=== PATIENT | male | born 2000 | race Caucasian/White ===

== ENCOUNTER 2022-07-19 02:06 | Emergency (ER) | payer OTHER ==
[2022-07-19 02:24] VITALS: O2SAT 100
[2022-07-19] MEDS ORDERED: Sodium Chloride 0.9% 1000 ML 1,000 ML IV STA (03:20)
[2022-07-19] MEDS ORDERED: PROTONIX 40 MG IV IV ONE ×2 (03:21→03:24)
[2022-07-19] MEDS ORDERED: Pepcid 20 MG VIAL IV ONE ×2 (03:21→03:24)
[2022-07-19] MEDS ORDERED: Sodium Chloride 0.9% 1000 ML 1,000 ML ONE (03:24)
--- NOTE | 2022-07-19 03:24 | ERPHSYRPT ---
- History of Present Illness Time Seen by Provider: 07/19/22 03:19 Historian: patient, family Exam Limitations: no limitations Patient Subjective Stated Complaint: pt states "I was getting up from a chair and my chest started hurting. I have hx of SVT" Triage Nursing Assessment: Pt ambulatory to bed by self, pt alert and oriented, pt c/o L sided chest pain that startred about 30 mins ago prior to arrival after getting up from chair, pt rating pain 4/10, pt in sinus rhythm with rate of 77. Physician History: pt woke up with chest pain left side lasting about 15 minutes to 30 minutes getting milder, was sharp, no SOBreath, No N or V. No trauma. Positive family Hx but he has no hx hptn, and nonsmoker. Heart score is 2 to 3 and low risk. He also Percs out for a PE with no tachy, no hx PE/DVT, No recent surg or hosp. Timing/Duration: today Activities at Onset: none Location: central Chest Pain Radiation: no radiation Severity of Pain-Max: moderate Severity of Pain-Current: none Modifying Factors: Improves With: nothing Associated Symptoms: denies symptoms Prior Chest Pain/Cardiac Workup: no prior chest pain Nitro Today/Relief: no nitro taken today Aspirin Treatment Today: 81 mg x 4, provided by ED Allergies/Adverse Reactions: steriods Allergy (Uncoded 07/19/22 02:25) Home Medications: No Reportable Medications [No Reported Medications] 07/19/22 [History] Hx Tetanus, Diphtheria Vaccination/Date Given: Yes Hx Influenza Vaccination/Date Given: No Hx Pneumococcal Vaccination/Date Given: No Immunizations Up to Date: Yes Travel Risk - International Travel Have you traveled outside of the country in past 3 weeks: No - Coronavirus Screening Are you exhibiting any of the following symptoms?: No Close contact with a COVID-19 positive Pt in past 14-21 Days: No - Vaccine Status Have you recieved a Covid-19 vaccination: Yes 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 - Vaccination Dates Date of 2cond Vaccination (if applicable): 2020 - Review of Systems Constitutional: No Fever, No Chills Eyes: No Symptoms Ears, Nose, & Throat: No Symptoms Respiratory: No Cough, No Dyspnea Cardiac: Chest Pain, No Edema, No Syncope Abdominal/Gastrointestinal: No Abdominal Pain, No Nausea, No Vomiting, No Diarrhea Genitourinary Symptoms: No Dysuria Musculoskeletal: No Back Pain, No Neck Pain Skin: No Rash Neurological: No Dizziness, No Focal Weakness, No Sensory Changes Psychological: No Symptoms Endocrine: No Symptoms Hematologic/Lymphatic: No Symptoms Immunological/Allergic: No Symptoms All Other Systems: Reviewed and Negative - Past Medical History Pertinent Past Medical History: Yes Neurological History: No Pertinent History ENT History: No Pertinent History Cardiac History: Other Respiratory History: No Pertinent History Endocrine Medical History: No Pertinent History Musculoskeletal History: No Pertinent History GI Medical History: No Pertinent History History: No Pertinent History Psycho-Social History: No Pertinent History Male Reproductive Disorders: No Pertinent History Other Medical History: SVT - Past Surgical History Past Surgical History: No Neuro Surgical History: No Pertinent History Cardiac: No Pertinent History Respiratory: No Pertinent History Gastrointestinal: No Pertinent History Genitourinary: No Pertinent History Musculoskeletal: No Pertinent History Male Surgical History: No Pertinent History - Social History Smoking Status: Never smoker Exposure to second hand smoke: No Drug Use: none Patient Lives Alone: No Significant Family History: no pertinent family hx - Nursing Vital Signs Nursing Vital Signs: Initial Vital Signs Temperature 98.4 F 07/19/22 02:18 Pulse Rate 83 07/19/22 02:18 Respiratory Rate 16 07/19/22 02:18 Blood Pressure 150/83 07/19/22 02:18 O2 Sat by Pulse Oximetry 100 07/19/22 02:18 Pain Scale Pain Intensity 0 - Physical Exam General Appearance: no apparent distress, alert Eye Exam: PERRL/EOMI, eyes nml inspection Ears, Nose, Throat Exam: normal ENT inspection, moist mucous membranes Neck Exam: normal inspection, non-tender, supple, full range of motion Respiratory Exam: normal breath sounds, lungs clear, No respiratory distress Cardiovascular Exam: regular rate/rhythm, normal heart sounds Gastrointestinal/Abdomen Exam: soft, No tenderness, No mass Rectal Exam: deferred Back Exam: normal inspection, No CVA tenderness, No vertebral tenderness Extremity Exam: normal inspection, normal range of motion Neurologic Exam: alert, oriented x 3, cooperative, normal mood/affect, sensation nml, No motor deficits Skin Exam: normal color, warm, dry SpO2 Interpretation: normal SpO2: 100 O2 Delivery: Room Air - Course Nursing assessment & vital signs reviewed: Yes EKG Interpreted by Me: Sinus Rhythm, Right Cass Deviation, NORMAL INTERVALS, N ORMAL QRS - Radiology Exams Chest X-ray Interpretation: Reviewed by me, No Pneumothorax, No Infiltrates, Other (unusual first left rib) Ordered Tests: Active Orders 24 hr Category Date Time Status EKG-ER Only STAT Care 07/19/22 03:20 Active IV Insertion STAT Care 07/19/22 03:20 Active CHEST 2 VIEWS (PA AND LAT) Stat Exams 07/19/22 04:06 Taken CBC W DIFF Stat Lab 07/19/22 03:29 Completed CMP Stat Lab 07/19/22 03:29 Completed TROPONIN Q4H Lab 07/19/22 03:29 Completed TROPONIN Q4H Lab 07/19/22 07:30 Ordered TROPONIN Q4H Lab 07/19/22 11:30 Ordered Medication Summary Discontinued Medications Generic Name Dose Route Start Last Admin Trade Name Freq PRN Reason Stop Dose Admin Aspirin 324 mg 07/19/22 04:25 07/19/22 04:26 Aspirin 81 Mg Tab.Chew PO 07/19/22 04:26 324 mg STAT ONE Administration Famotidine 20 mg 07/19/22 03:21 07/19/22 03:32 Famotidine 20 Mg/1 Vial IV 07/19/22 03:22 20 mg STAT ONE Administration Famotidine Confirm 07/19/22 03:24 Famotidine 20 Mg/1 Vial Administered 07/19/22 03:25 Dose 20 mg IV .STK-MED ONE Sodium Chloride 1,000 mls @ 999 mls/hr 07/19/22 03:20 07/19/22 04:31 Sodium Chloride 0.9% 1000 Ml IV 07/19/22 04:20 Infused .Q1H1M STA Infusion Sodium Chloride Confirm 07/19/22 03:24 Sodium Chloride 0.9% 1000 Ml Administered 07/19/22 03:25 Dose 1,000 mls @ ud .ROUTE .STK-MED ONE Pantoprazole Sodium 40 mg 07/19/22 03:21 07/19/22 03:33 Pantoprazole 40 Mg Vial IV 07/19/22 03:22 40 mg STAT ONE Administration Pantoprazole Sodium Confirm 07/19/22 03:24 Pantoprazole 40 Mg Vial Administered 07/19/22 03:25 Dose 40 mg IV .STK-MED ONE Lab/Rad Data: Laboratory Result Diagrams 07/19/22 03:29 07/19/22 03:29 Laboratory Results 07/19/22 07/19/22 07/19/22 Range/Units 03:29 03:29 03:29 WBC 7.8 (4.0-10.5) x10^3/uL RBC 4.98 (4.1-5.6) x10^6/uL Hgb 15.5 (12.5-18.0) g/dL Hct 45.2 (42-50) % MCV 90.8 (78-100) fL MCH 31.1 (26-32) pg MCHC 34.3 (32-36) g/dL RDW 12.1 (11.5-14.0) % Plt Count 242 (150-450) x10^3/uL MPV 9.8 (7.5-11.0) fL Gran % 56.1 (36.0-66.0) % Immature Gran % (Auto) 0.4 (0.00-0.4) % Nucleat RBC Rel Count 0.0 (0.00-0.1) % Eos # (Auto) 0.09 (0-0.5) x10^3/uL Immature Gran # (Auto) 0.03 (0.00-0.03) x10^3u/L Absolute Lymphs (auto) 2.60 (1.0-4.6) x10^3/uL Absolute Monos (auto) 0.64 (0.0-1.3) x10^3/uL Absolute Nucleated RBC 0.00 (0.00-0.01) x10^3u/L Lymphocytes % 33.5 (24.0-44.0) % Monocytes % 8.2 (0.0-12.0) % Eosinophils % 1.2 (0.00-5.0) % Basophils % 0.6 (0.0-0.4) % Absolute Granulocytes 4.36 (1.4-6.9) x10^3/uL Basophils # 0.05 (0-0.4) x10^3/uL Sodium 137 (137-145) mmol/L Potassium 3.3 L (3.5-5.1) mmol/L Chloride 101 (98-107) mmol/L Carbon Dioxide 27 (22-30) mmol/L Anion Gap 12.2 (5-15) MEQ/L BUN 11 (9-20) mg/dL Creatinine 0.80 (0.66-1.25) mg/dL Estimated GFR > 60.0 ML/MIN Glucose 96 (74-106) mg/dL Calcium 9.0 (8.4-10.2) mg/dL Total Bilirubin 1.50 H (0.2-1.3) mg/dL AST 27 (17-59) U/L ALT 23 (0-50) U/L Alkaline Phosphatase 92 (38-126) U/L Troponin I < 0.012 (0.000-0.034) ng/mL Serum Total Protein 8.2 (6.3-8.2) g/dL Albumin 4.8 (3.5-5.0) g/dL - Progress Air Movement: good Progress Note: 07/19/22 04:46 pt is advised of heart score algorythm and that there still could be a cardiac condition even with low score , and need for f/u therefore. He is comfortable with assuming this risk rather thatn admit or further immediate workup. 07/19/22 04:51 chest pain has resolved. Blood Culture(s) Obtained: No Antibiotics given: No Counseled pt/family regarding: lab results, diagnosis, need for follow-up, rad results - Departure Departure Disposition: Home Clinical Impression: chest pain - resolved, mild hypokalemia Condition: Good Critical Care Time: No Referrals: LESLIE CARREON MD [Primary Care Provider] - Follow up/PCP as directed Instructions: Chest Pain (DC), Hypokalemia (DC) Additional Instructions: followup with your Dr. for your chest pain, low potassium, and rib asymmetry. There still could be an undetected heart condition even with your low risk and normal tests. Return meantime if any further symptoms of concern.
[2022-07-19 03:45] LABS: ALBUMIN 4.8 g/dL (3.5-5.0); ALKALINE PHOSPHATASE 92 U/L (38-126); ANION GAP 12.2 MEQ/L (5-15); BLOOD UREA NITROGEN 11 mg/dL (9-20); CHLORIDE 101 mmol/L (98-107); Carbon Dioxide 27 mmol/L (22-30); EST GLOMERULAR FILTRATION RATE > 60.0 ML/MIN; Glucose 96 mg/dL (74-106); Potassium 3.3 mmol/L (3.5-5.1); SGOT/AST 27 U/L (17-59); SGPT/ALT 23 U/L (0-50); SODIUM 137 mmol/L (137-145); Total Protein 8.2 g/dL (6.3-8.2)
[2022-07-19 03:46] LABS: Absolute Neutrophil Ct (ANC) 4.36 x10^3/uL (1.4-6.9); Basophil (Absolute #) 0.05 x10^3/uL (0-0.4); Eosinophil % 1.2 % (0.00-5.0); Eosinophil (Absolute #) 0.09 x10^3/uL (0-0.5); Hematocrit 45.2 % (42-50); Hemoglobin 15.5 g/dL (12.5-18.0); Lymphocytes % 33.5 % (24.0-44.0); Mean Cell Volume 90.8 fL (78-100); Mean Corpuscular Hemoglobin 31.1 pg (26-32); Mean Corpuscular Hgb Concent. 34.3 g/dL (32-36); Mean Platelet Volume 9.8 fL (7.5-11.0); Monocyte (Absolute #) 0.64 x10^3/uL (0.0-1.3); Monocytes % 8.2 % (0.0-12.0); Neutrophil % 56.1 % (36.0-66.0); Platelet Count 242 x10^3/uL (150-450); Red Blood Count 4.98 x10^6/uL (4.1-5.6); Red Cell Distribution Width 12.1 % (11.5-14.0); White Blood Count 7.8 x10^3/uL (4.0-10.5)
[2022-07-19] MEDS ORDERED: BABY ASPIRIN 81 MG CHEW PO ONE (04:25)
[2022-07-19] MEDS ORDERED: K-LYTE PO ONE (04:52)
[2022-07-19] MEDS ORDERED: K-LYTE ONE (04:58)
[2022-07-19 05:05] VITALS: BP 112/82; PULSE 76
--- NOTE | 2022-07-19 08:06 | XRAY ---
Indication: Chest pain. Comparison: None PA/lateral chest demonstrates normal heart and lungs. Bony thorax intact with incidental hypoplastic left 1st rib.
== END 2022-07-19 05:08 | disposition home or self-care (01) ==
LOC: ED 02:06
DX: R07.9 Chest pain, unspecified (principal); E87.6 Hypokalemia
CPT/HCPCS: 36000; 36415; 71046; 80053; 84484; 85025; 93005; 96360; 96374; 96375; 99284; A9270-GY